=== PATIENT | female | born 1960 | race Caucasian/White ===

== ENCOUNTER → 2025-01-24 | Outpatient (CLI) | payer OTHER ==
--- NOTE | 2025-01-24 22:33 | HMCIMG ---
EXAM: CERVICAL SPINE RADIOGRAPH (6 VIEWS) Technique: Six views of the cervical spine were obtained. Clinical Information: Cervical radiculopathy. Findings: Alignment: Straightening of the normal cervical lordosis. No anterolisthesis or retrolisthesis identified on neutral, flexion, or extension views. Vertebrae and discs: Bones appear osteopenic. Multilevel endplate osteophytic spurring is present with reduction in intervertebral disc height at C5???C6 and C6???C7. No acute compression deformity identified. Facet joints: Multilevel facet joint hypertrophy. Neural foramina: Oblique views demonstrate no gross high-grade osseous foraminal encroachment on the submitted images; fine detail is limited by projection and radiographic resolution. Odontoid and atlantoaxial alignment: Odontoid process is intact; lateral masses are symmetric; atlanto-dens interval is within expected limits. Prevertebral soft tissues: No prevertebral soft tissue swelling.IMPRESSION: 1. No acute cervical spine findings. 2. Multilevel degenerative changes including disc space narrowing at C5-C6 and C6-C7. 3. Suggested MRI for further evaluation. /[place]
== END | disposition home or self-care (01) ==
LOC: RAH 14:39
PROVIDERS: ATTEND Physical Medicine & Rehabilitation
DX: M47.22 Other spondylosis with radiculopathy, cervical region (principal); M48.02 Spinal stenosis, cervical region; M40.40 Postural lordosis, site unspecified; M25.78 Osteophyte, vertebrae; M85.88 Other specified disorders of bone density and structure, other site
CPT/HCPCS: 72050